=== PATIENT | male | born 1940 | race Caucasian/White ===

== ENCOUNTER 2017-10-24 19:31 | Observation (INO) | payer SELFPAY ==
--- NOTE | 2017-10-24 19:45 | EDPHY ---
H & P Stated Complaint: c/o gerd since this am, last 2 hrs bilat low chest/up abd pain , poss fever Time Seen by Provider: 10/24/17 19:44 HPI/ROS: CHIEF COMPLAINT: [ ] HISTORY OF PRESENT ILLNESS: [Need 4: Location, Duration, Severity, Quality, Context, Timing Modifying Factors, Associated S&S] REVIEW OF SYSTEMS: A comprehensive 10 point review of systems is otherwise negative aside from elements mentioned in the history of present illness. Source: Patient Exam Limitations: No limitations - Medical/Surgical History Hx Asthma: No Hx Chronic Respiratory Disease: No Hx Diabetes: No Hx Cardiac Disease: Yes Hx Renal Disease: No Hx Cirrhosis: No Hx Alcoholism: No Hx HIV/AIDS: No Hx Splenectomy or Spleen Trauma: No Other PMH: mi, cabg, hypertension, hyperlipidemia, gerd - Social History Smoking Status: Current every day smoker - Physical Exam Exam: General Appearance: [Alert, no distress] Eyes: [Pupils equal and round no pallor or injection] ENT, Mouth: [Mucous membranes moist] Respiratory: [There are no retractions, lungs are clear to auscultation] Cardiovascular: [Regular rate and rhythm] Gastrointestinal: [Abdomen is soft and nontender, no masses, bowel sounds normal] Neurological: [A&O, normal motor function, normal sensory exam, normal cranial nerves] Skin: [Warm and dry, no rashes] Musculoskeletal: [Neck is supple nontender] Extremities: [symmetrical, full range of motion] Psychiatric: [Patient is oriented X 3, there is no agitation] Constitutional: Initial Vital Signs Temperature (C) 36.3 C 10/24/17 19:35 Heart Rate 72 10/24/17 19:35 Respiratory Rate 16 10/24/17 19:35 Blood Pressure 176/83 H 10/24/17 19:35 O2 Sat (%) 95 10/24/17 19:35 O2 Delivery Mode Room Air Allergies/Adverse Reactions: No Known Allergies Allergy (Unverified 10/24/17 19:41) Home Medications: Medication Instructions Recorded NK [No Known Home Meds] 10/24/17 Departure - Departure Referrals: NONE *PRIMARY CARE P,. [Primary Care Provider] - As per Instructions
--- NOTE | 2017-10-24 19:47 | EDPHY ---
HPI/HX/ROS/PE/MDM Narrative: CHIEF COMPLAINT: Abdominal pain HISTORY OF PRESENT ILLNESS: This patient is a 77 y/o male complaining of abdominal discomfort. This morning around 5am he woke with a pressure sensation in his upper abdomen and chest. This has happened in the past and usually resolves after about 30 minutes. Today , the sensation persisted. He has been belching frequently to relieve the pressure. He was able to eat normally. He has felt febrile throughout the day as well. He went to see an urgent care around 6pm. Did EKG, recommended he present to ED for further evaluation. Denies history of reflux or gastritis. He denies swelling in his ankles. Patient has history of CABG in 2005. Prior to this, he had the sensation of an elephant sitting on his chest. He denies similar symptoms today. No chills, chest pain, shortness of breath, palpitations , vomiting, diarrhea, urinary complaints, headache, lightheadedness. REVIEW OF SYSTEMS: Aside from elements discussed in the HPI, a comprehensive 10-point review of systems was reviewed and is negative. PAST MEDICAL HISTORY: History of CABG in 2005. Hypertension. Hyperlipidemia, GERD. SOCIAL HISTORY: Family at bedside. Daily tobacco use. No alcohol use. VITAL SIGNS: Reviewed by me. Afebrile here. GENERAL: Well-developed, well-nourished, frequent belching, in no respiratory distress. HEENT: Atraumatic. Eyes: No icterus, no injection. Mouth: poor dentition. Moist mucous membranes. No erythema or lesions. Neck: supple with no adenopathy. LUNGS: Clear to auscultation bilaterally, no wheezes, rhonchi or rales. CARDIAC: Regular rate and rhythm, no rubs, murmurs or gallops. ABDOMEN: Soft, somewhat distended, very mild tenderness to deep palpation epigastric right and left upper quadrants. Normal bowel sounds. BACK: No CVA tenderness. EXTREMITIES: No trauma. No edema. Range of motion is normal throughout. NEURO: Alert and oriented, grossly nonfocal. SKIN: Warm and dry, no rash. PSYCHIATRIC: Normal mentation, no agitation. Portions of this note were transcribed by a medical records auditor. I personally performed a history, physical exam, medical decision making, and confirmed accuracy of information the transcribed note. ED Course: 77 y/o male presents with upper abdominal discomfort onset this morning. Plan for EKG, chest x-ray, labs including CBC, chemistries, liver, lipase, UA, POC troponin. Plan to administer 40mg IV Protonix, 4mg IV Zofran and 75mcg IV fentanyl for symptom relief. 12-LEAD EKG: Please see the full report in [facility]. My interpretation: Sinus rhythm, RBBB. Chest x-ray negative for acute processes. Troponin negative. Labs otherwise unremarkable. On re-examination the patient reports decrease in his epigastric discomfort. He is continuing to report bilateral thoraco- abdominal discomfort, as well as upper abdominal discomfort in a band across the upper abdomen. His belching has returned. Urinalysis: Negative. CT Scan Abdomen/ Pelvis ordered. Reported to me by Dr. Dumont as demonstrating gallstones, gallbladder wall thickening, pericholecystic fluid, consistent with cholecystitis. Patient also has an adrenal mass. Course discussed with Dr. Tenzin Hernández. We will obtain a CT scan to further evaluate the gallbladder. Plan to admit to the hospital for presumed cholecystitis as well as abdominal pain. MDM: Differential diagnosis for the patient's upper abdominal pain and belching was considered including but not limited to cholecystitis, biliary colic, gastritis , peptic ulcers disease, and pancreatitis. - Data Points Imaging Results: Imaging Impressions Chest X-Ray 10/24/17 20:02 Impression: 1. Postsurgical changes. 2. No acute pulmonary disease. Abdomen CT 10/24/17 21:51 Impression: 1. Cholelithiasis with pericholecystic fluid suggesting acute cholecystitis. Consider follow-up ultrasound gallbladder. 2. Sigmoid diverticulosis without diverticulitis or bowel obstruction. 3. Mild constipation. 4. Atherosclerotic aorta without aneurysm. 5. Left adrenal mass measuring 3.2 x 2.5 cm which may represent adrenal adenoma versus adrenal cortical cortical carcinoma, or metastasis. Recommend follow-up noncontrast CT abdomen when the patient's medical condition permits. Findings and recommendations discussed with Emergency Department physician, Georgia Malave MD at 22:23 hour, 10/24/2017. Final report concurs with initial preliminary interpretation. Imaging: I viewed and interpreted images myself Laboratory Results: Laboratory Results 10/24/17 19:52 10/24/17 19:52 10/24/17 10/24/17 10/24/17 21:29 19:58 19:52 WBC RBC Hgb Hct MCV MCH MCHC RDW Plt Count MPV Neut % (Auto) Lymph % (Auto) [place] % (Auto) Eos % (Auto) Baso % (Auto) Nucleat RBC Rel Count Absolute Neuts (auto) Absolute Lymphs (auto) Absolute Monos (auto) Absolute Eos (auto) Absolute Basos (auto) Absolute Nucleated RBC Immature Gran % Immature Gran # Sodium 136 mEq/L mEq/L (135-145) Potassium 4.2 mEq/L mEq/L (3.3-5.0) Chloride 101 mEq/L mEq/L (97-110) Carbon Dioxide 22 mEq/l mEq/l (22-31) Anion Gap 13 mEq/L mEq/L (8-16) BUN 16 mg/dL mg/dL (7-23) Creatinine 0.7 mg/dL mg/dL (0.7-1.3) Estimated GFR > 60 Glucose 102 mg/dL H mg/dL (70-100) Calcium 9.1 mg/dL mg/dL (8.5-10.4) Total Bilirubin 0.8 mg/dL mg/dL (0.1-1.4) Conjugated Bilirubin 0.5 mg/dL mg/dL (0.0-0.5) Unconjugated Bilirubin 0.3 mg/dL mg/dL (0.0-1.1) AST 26 IU/L IU/L (17-59) ALT 25 IU/L IU/L (21-72) Alkaline Phosphatase 51 IU/L IU/L (38-126) POC Troponin I 0.01 ng/mL ng/mL (0.00-0.08) Total Protein 7.5 g/dL g/dL (6.3-8.2) Albumin 4.4 g/dL g/dL (3.5-5.0) Lipase 51 IU/L IU/L (23-300) Urine Color PALE YELLOW Urine Appearance CLEAR Urine pH 5.0 (5.0-7.5) Ur Specific [place] 1.006 (1.002-1.030) Urine Protein NEGATIVE (NEGATIVE) Urine Ketones NEGATIVE (NEGATIVE) Urine Blood NEGATIVE (NEGATIVE) Urine Nitrate NEGATIVE (NEGATIVE) Urine Bilirubin NEGATIVE (NEGATIVE) Urine Urobilinogen NEGATIVE EU EU (0.2-1.0) Ur Leukocyte Esterase NEGATIVE (NEGATIVE) Urine RBC NONE SEEN /hpf /hpf (0-3) Urine WBC 1-3 /hpf /hpf (0-3) Ur Epithelial Cells NONE SEEN /lpf /lpf (NONE-1+) Urine Mucus TRACE /lpf /lpf (NONE-1+) Urine Glucose NEGATIVE (NEGATIVE) 10/24/17 19:52 WBC 12.79 10^3/uL H 10^3/uL (3.80-9.50) RBC 5.05 10^6/uL 10^6/uL (4.40-6.38) Hgb 16.7 g/dL g/dL (13.7-17.5) Hct 46.5 % % (40.0-51.0) MCV 92.1 fL fL (81.5-99.8) MCH 33.1 pg pg (27.9-34.1) MCHC 35.9 g/dL g/dL (32.4-36.7) RDW 12.6 % % (11.5-15.2) Plt Count 192 10^3/uL 10^3/uL (150-400) MPV 10.2 fL fL (8.7-11.7) Neut % (Auto) 73.7 % % (39.3-74.2) Lymph % (Auto) 16.0 % % (15.0-45.0) [place] % (Auto) 9.1 % % (4.5-13.0) Eos % (Auto) 0.3 % L % (0.6-7.6) Baso % (Auto) 0.5 % % (0.3-1.7) Nucleat RBC Rel Count 0.0 % % (0.0-0.2) Absolute Neuts (auto) 9.43 10^3/uL H 10^3/uL (1.70-6.50) Absolute Lymphs (auto) 2.05 10^3/uL 10^3/uL (1.00-3.00) Absolute Monos (auto) 1.16 10^3/uL H 10^3/uL (0.30-0.80) Absolute Eos (auto) 0.04 10^3/uL 10^3/uL (0.03-0.40) Absolute Basos (auto) 0.06 10^3/uL 10^3/uL (0.02-0.10) Absolute Nucleated RBC 0.00 10^3/uL 10^3/uL (0-0.01) Immature Gran % 0.4 % % (0.0-1.1) Immature Gran # 0.05 10^3/uL 10^3/uL (0.00-0.10) Sodium Potassium Chloride Carbon Dioxide Anion Gap BUN Creatinine Estimated GFR Glucose Calcium Total Bilirubin Conjugated Bilirubin Unconjugated Bilirubin AST ALT Alkaline Phosphatase POC Troponin I Total Protein Albumin Lipase Urine Color Urine Appearance Urine pH Ur Specific [place] Urine Protein Urine Ketones Urine Blood Urine Nitrate Urine Bilirubin Urine Urobilinogen Ur Leukocyte Esterase Urine RBC Urine WBC Ur Epithelial Cells Urine Mucus Urine Glucose Medications Given: Discontinued Medications Dicyclomine HCl (Bentyl) 20 mg PO EDNOW ONE Stop: 10/24/17 21:52 Last Admin: 10/24/17 21:54 Dose: 20 mg Fentanyl (Sublimaze) 75 mcg IVP EDNOW ONE Stop: 10/24/17 20:02 Last Admin: 10/24/17 20:17 Dose: 75 mcg Ondansetron HCl (Zofran) 4 mg IVP EDNOW ONE Stop: 10/24/17 20:02 Last Admin: 10/24/17 20:17 Dose: 4 mg Pantoprazole Sodium (Protonix) 40 mg IVP EDNOW ONE Stop: 10/24/17 20:30 Last Admin: 10/24/17 20:35 Dose: 40 mg Promethazine HCl (Phenergan) 12.5 mg IVP EDNOW ONE Stop: 10/24/17 21:56 Last Admin: 10/24/17 21:58 Dose: 12.5 mg Point of Care Test Results: Chemistry 10/24/17 19:58 POC Troponin I 0.01 ng/mL ng/mL (0.00-0.08) General Time Seen by Provider: 10/24/17 19:44 Initial Vital Signs: Initial Vital Signs Temperature (C) 36.3 C 10/24/17 19:35 Heart Rate 72 10/24/17 19:35 Respiratory Rate 16 10/24/17 19:35 Blood Pressure 176/83 H 10/24/17 19:35 O2 Sat (%) 95 10/24/17 19:35 O2 Delivery Mode Room Air Allergies/Adverse Reactions: No Known Allergies Allergy (Unverified 10/24/17 19:41) Home Medications: Medication Instructions Recorded NK [No Known Home Meds] 10/24/17 Departure - Departure Disposition: [facility] Inpatient Acute Clinical Impression: Cholecystitis Abdominal pain Qualifiers: Abdominal location: epigastric Qualified Code(s): R10.13 - Epigastric pain Condition: Fair Referrals: Surendra Grossman MD [Medical Doctor] - As per Instructions (Follow up with Dr. Grossman or 1 of his partners as soon as possible) Report Scribed for: Georgia Malave Report Scribed by: Isabel Brice Date of Report: 10/24/17 Time of Report: 19:47
--- NOTE | 2017-10-24 19:49 | CPEKG ---
Heart Rate: 76 RR Interval: 789 P-R Interval: 184 QRSD Interval: 146 QT Interval: 444 QTC Interval: 500 P Hankins: -26 QRS Hankins: 70 T Wave Hankins: 12 EKG Severity - ABNORMAL ECG - EKG Impression: SINUS RHYTHM EKG Impression: RIGHT BUNDLE BRANCH BLOCK EKG Impression: INFERIOR INFARCT, AGE INDETERMINATE Electronically Signed By: Georgia Malave 24-Oct-2017 21:38:07
[2017-10-24] MEDS ORDERED: fentaNYL 100 MCG/2 ML INJ IVP ONE (20:01)
[2017-10-24] MEDS ORDERED: ONDANSETRON 4 MG/2 ML VIAL IVP ONE (20:01)
[2017-10-24 20:12] LABS: PLATELET COUNT 192 10^3/uL (150-400)
[2017-10-24] MEDS ORDERED: PANTOPRAZOLE SODIUM 40 MG VIAL IVP ONE (20:29)
[2017-10-24] MEDS ORDERED: DICYCLOMINE 10 MG CAP PO ONE (21:51)
[2017-10-24] MEDS ORDERED: IOPAMIDOL (ISOVUE-300) 100 ML BTL ONE (21:53)
[2017-10-24] MEDS ORDERED: PROMETHAZINE HCL 25 MG/ML INJ IVP ONE (21:55)
--- NOTE | 2017-10-25 00:13 | SOAPPROG ---
FROY Progress Note Assessment/Plan: Assessment: 77-YEAR-OLD MALE WITH ACUTE CHOLECYSTITIS WITH A SINGLE EPISODE OF ABDOMINAL PAIN STARTING AT 2:30 A.M. TODAY AND PERSISTING. HE HAS HAD NO OTHER EPISODES BEFORE. ULTRASOUND CT SCAN REVEAL REVEAL MULTIPLE STONES. HIS LFTS ARE NORMAL. DUCTS ARE NOT DILATED AND HE HAS NO SIGNS OF JAUNDICE PAST HISTORY INCLUDES CORONARY ARTERY BYPASS AND SOME CORONARY STENTS REVIEW OF SYSTEMS IS NONCONTRIBUTORY ON A FULL 10 POINT REVIEW EXCEPT RELATED TO THE HPI ALLERGIES NONE MEDS NONE FAMILY HISTORY NONCONTRIBUTORY HEENT NONICTERIC WITHOUT ADENOPATHY CHEST CLEAR COR REGULAR RHYTHM ABDOMEN SOFT NONTENDER WITHOUT ORGANOMEGALY EXTREMITIES FULL RANGE OF MOTION FULL PULSES NEUROLOGIC SYMMETRIC AND PHYSIOLOGIC IMPRESSION SYMPTOMATIC CHOLELITHIASIS AND CHOLECYSTITIS Plan: LAP CHOLY IN THE A.M./RISKS AND OPTIONS FULLY DISCUSSED AND HE WISHES TO PROCEED 10/25/17 00:10 Objective: Vital Signs Temp Pulse Resp BP Pulse Ox 36.3 C 86 16 132/77 H 92 10/24/17 19:35 10/24/17 23:05 10/24/17 23:05 10/24/17 23:05 10/24/17 23:05 ICD10 Worksheet Patient Problems: Problems Problem Status Onset Abdominal pain Acute Cholecystitis Acute
[2017-10-25] MEDS ORDERED: HYDROmorphone HCL/NS 0.5 MG/ML SYR IVP PRN ×2 (00:20→11:00)
[2017-10-25] MEDS ORDERED: ONDANSETRON 4 MG/2 ML VIAL IVP PRN (00:20)
[2017-10-25] MEDS ORDERED: D5W 1/2 NS W/ 20 KCl/L 1,000 ML IV SCH (00:30)
[2017-10-25] MEDS ORDERED: PANTOPRAZOLE SODIUM 40 MG VIAL IVP SCH (02:02)
[2017-10-25] MEDS ORDERED: cefOXitin SODIUM 2 GM in NS 100 ML IV ONE (06:00)
[2017-10-25] MEDS ORDERED: LR 1,000 ML IV ONE (09:00)
--- NOTE | 2017-10-25 09:14 | PDANEPAE ---
ANE History of Present Illness laparoscopic cholecystectomy ' ANE Past Medical History - Cardiovascular History Hx Arrhythmias: No Cardiovascular History Comment: s/p [place] and CABG in , hx of HPL, RBBB and old [place] on EKG. 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 RA O2 saturation in preop: 87 - Endocrine History Hx Diabetes: No Hypothyroid: No Hyperthyroid: No Obesity: mild - Renal History Hx Renal Disorders: No - Liver History Hx Hepatic Disorders: No - Neurological & Psychiatric Hx Hx Neurological and Psychiatric Disorders: No - Cancer History Hx Cancer: No - Congenital Disorder History Hx Congenital Disorders: No - GI History GERD: no Hx Gastrointestinal Disorders: No - Chronic Pain History Chronic Pain: No - Surgical History Prior Surgeries: CABG in ANE Review of Systems Review of Systems: - Exercise capacity METS (RN): 4 METS ANE Patient History - Allergies Allergies/Adverse Reactions: No Known Allergies Allergy (Unverified 10/24/17 19:41) - Home Medications Home Medications: Aspirin [Aspirin 81mg (*)] 81 mg PO HS 10/25/17 [Last Taken 10/24/17] - NPO status NPO Since - Liquids (Date): 10/25/17 NPO Since - Liquids (Time): 00:00 NPO Since - Solids (Date): 10/25/17 NPO Since - Solids (Time): 00:00 - Anes Hx Anes Hx: no prior problems - Smoking Hx Smoking Status: Current every day smoker Marijuana use: No - Alcohol Use Alcohol Use: None - Family Anes Hx Family Hx Anesthesia Complications: unknown ANE Labs/Vital Signs - Labs Result Diagrams: 10/24/17 19:52 10/24/17 19:52 - Vital Signs Blood Pressure: 117/54 Heart Rate: 90 Respiratory Rate: 16 O2 Sat (%): 90 Height: 172.72 cm Weight: 78.471 kg ANE Physical Exam - Airway Neck exam: decreased ROM Mallampati Score: Class 3 Mouth exam: poor dentition - Pulmonary Pulmonary: clear to auscultation - Cardiovascular Cardiovascular: regular rate and rhythym (distant sounds) ANE Anesthesia Plan Anesthesia Plan: general endotracheal anesthesia
[2017-10-25] MEDS ORDERED: BUPIVACAINE 0.5% 30 ML SDV ONE (09:23)
[2017-10-25] MEDS ORDERED: fentaNYL 100 MCG/2 ML INJ ONE ×2 (09:32→10:23)
[2017-10-25] MEDS ORDERED: ROCURONIUM 50 MG/5 ML VIAL ONE (09:33)
[2017-10-25] MEDS ORDERED: PROPOFOL 200 MG/20 ML VIAL ONE (09:33)
[2017-10-25] MEDS ORDERED: DEXAMETHASONE 4 MG/ML VIAL ONE (09:33)
[2017-10-25] MEDS ORDERED: PHENYLEPHRINE HCL 100 MCG/ML SYR ONE (10:00)
[2017-10-25] MEDS ORDERED: ONDANSETRON 4 MG/2 ML VIAL ONE (10:12)
[2017-10-25] MEDS ORDERED: HYDROmorphONE/DILAUDID 2 MG/ML INJ IVP PRN (10:20)
[2017-10-25] MEDS ORDERED: DEXAMETHASONE 4 MG/ML VIAL IVP PRN (10:20)
[2017-10-25] MEDS ORDERED: fentaNYL 100 MCG/2 ML INJ IVP PRN (10:20)
[2017-10-25] MEDS ORDERED: NALOXONE HCL 0.4 MG/ML INJ IVP PRN (10:20)
[2017-10-25] MEDS ORDERED: SUGAMMADEX SODIUM 200 MG/2 ML VIAL IVP ONE (10:49)
--- NOTE | 2017-10-25 11:02 | POSTOPPROG ---
Post Op Note Date of Operation: 10/25/17 Surgeon: Romeo Hernández Graphic Art Sales Representative: Tonia Fermin Anesthesiologist: Kwesi Rowland Anesthesia: GET(General Endotracheal) Pre-op Diagnosis: cholelithiasis, acute cholecystitis Post-op Diagnosis: same Procedure: lap patrizia Findings: many stones, much edema, large cystic duct, stone in duct milked out Inf/Abcess present in the surg proc area at time of surgery?: Yes Depth: Organ Space EBL: 200cc Complications: none Specimen(s): gallbladder to pathology
[2017-10-25] MEDS ORDERED: HYDROmorphONE/DILAUDID 1 MG/ML INJ IVP PRN (11:05)
[2017-10-25] MEDS ORDERED: D5W 1/2 NS 1,000 ML IV SCH (11:30)
--- NOTE | 2017-10-25 11:49 | ASMTCASEMG ---
Living Arrangements What is your living Answers: With Child(teddy) arrangement? Who do you live with? Type Of Residence What kind of residence do Answers: House you live in? Discharge Plan Comments Coordination Status Comments Notes: Patient is a 77yo male who comes to [facility] with acute cholecystitis, CT scan revealing multiple stones. Patient was admitted for urgent laparoscopy with Dr. Hernández. No therapies ordered at this time. D/C plan TBD. CM will follow. Date Signed: 10/25/2017 11:49 AM Electronically Signed By:Janel Leblanc LCSW
[2017-10-25] MEDS: HYDROCODONE/APAP 5/325 TAB PO PRN (13:03)
--- NOTE | 2017-10-25 13:39 | POSTANESTH ---
Post Anesthetic Evaluation Cardiovascular Status: Similar to Pre-Op Cond Respiratory Status: Similar to Pre-op Cond. Level of Consciousness/Mental Status: Can Participate in Eval Pain Control: Adequate, Prn Tx Ordered Nausea/Vomiting Control: Adequate, Prn Tx Ordered Complications Possibly Related to Anesthesia: None Noted
[2017-10-25] MEDS ORDERED: ASPIRIN 81 MG CHEWABLE TAB PO SCH (21:00)
[2017-10-25] MEDS ORDERED: MELATONIN 3 MG TAB PO SCH (21:00)
[2017-10-26] MEDS: HYDROCODONE/APAP 5/325 TAB PO PRN ×2 (00:25→07:43)
[2017-10-26 07:21] VITALS: BP 120/57
--- NOTE | 2017-10-26 08:51 | SOAPPROG ---
SOAP Progress Note Assessment/Plan: Assessment: 77 y/o M s/p lap patrizia POD#1 S: Feeling much better. Tolerating clears. Passing flatus, but no BM yet. Pain well controlled on Minerva. Eager to be discharged O: Alert Afebrile VSS No increased WOB Abdomen: soft, mildly tender to palpation, incision sites cdi, +BS Plan: Dispo home today after he eats a solid breakfast. Advised to stick to a low fat diet for first week. Follow up in Hernández' office in 2 weeks. 10/26/17 08:49 Objective: Vital Signs Temp Pulse Resp BP Pulse Ox 36.7 C 65 14 120/57 L 94 10/26/17 07:20 10/26/17 07:20 10/26/17 07:20 10/26/17 07:20 10/26/17 07:20 Laboratory Results 10/26/17 05:20 10/26/17 05:20 10/25/17 10/26/17 10/27/17 05:59 05:59 05:59 Intake Total 0 1150 Output Total 25 Balance 0 1125 ICD10 Worksheet Patient Problems: Problems Problem Status Onset Abdominal pain Acute Cholecystitis Acute
--- NOTE | 2017-10-26 09:04 | ASMTLACE ---
LACE Length of stay for Answers: 2 days current admission Acuity / Level of Answers: Yes Care: Did the patient have an inpatient admission? Comorbidities - select Answers: Other Notes: acute cholecystitis all that apply # of Emergency department Answers: 1-2 visits in the last 6 months Score: 7 Date Signed: 10/26/2017 09:03 AM Electronically Signed By:KALEE Capellan
--- NOTE | 2017-10-30 00:24 | GOP ---
[f rep st] OPERATIVE REPORT DATE OF OPERATION: 10/25/2017 SURGEON: Romeo Hernández MD INDUSTRIAL DESIGN ENGINEER: Tonia Fermin, HUEY ANESTHESIA: General endotracheal anesthesia. ANESTHESIOLOGIST: Kwesi Rowland MD PREOPERATIVE DIAGNOSIS: Acute cholecystitis and cholelithiasis. POSTOPERATIVE DIAGNOSIS: Acute cholecystitis and cholelithiasis. PROCEDURE PERFORMED: Laparoscopic cholecystectomy. FINDINGS: Patient was found to have multiple stones with marked edema of the gallbladder. Large cys tic duct with a stone impacted in the cystic duct. The common duct was not enlarged. DESCRIPTION OF PROCEDURE: The patient was taken to the operating room where he received satisfactory general endotracheal anesthesia by Dr. Rowland. Placed in the supine position, prepped and draped in the usual sterile fashion. An infraumbilical incision was made. A Veress needle was inserted. Pneu moperitoneum was established. Trocar was introduced. Laparoscope introduced. Good visualization wa s obtained. Three other trocars were placed in the upper abdomen under direct vision. The gallbladd er was elevated up. It was markedly edematous and difficult to hold up. Adhesions were taken down. The cystic triangle was carefully dissected free. The cystic duct was somewhat enlarged, and we dis sected back to the junction with the common bile duct. The cystic artery was also dissected free. A good clear view was demonstrated. The cystic artery was multiply hemoclipped and divided. The florecita toneum around the gallbladder was incised, and the gallbladder was dissected free from the bed and he patic fossa. The cystic duct was then closed by placing 2-0 PDS Endoloops distal to the stone seen i n the common duct. Once the duct was divided, the gallbladder was free, and it was placed in a speci men bag and extracted up through the upper midline port site. Wound was copiously irrigated. Hemost asis was assured. There were no complications. /[id number]/MODL
== END 2017-10-26 10:35 | disposition home or self-care (01) ==
LOC: F3E 23:33
PROVIDERS: ADMIT Surgery; ATTEND Surgery
PROC: 0FT44ZZ Resection of Gallbladder, Percutaneous Endoscopic Approach (ICD-10-PCS; principal; 2017-10-24)
DX: K80.00 Calculus of gallbladder with acute cholecystitis without obstruction (principal); I10 Essential (primary) hypertension; E78.5 Hyperlipidemia, unspecified; I45.10 Unspecified right bundle-branch block; K21.9 Gastro-esophageal reflux disease without esophagitis; E27.9 Disorder of adrenal gland, unspecified; I25.2 Old myocardial infarction; Z95.1 Presence of aortocoronary bypass graft; Z95.5 Presence of coronary angioplasty implant and graft
CPT/HCPCS: 84484-PO; 96374; G0378; J0694; J1100; J2370; J2405; J2550; J2704; J3010; Q9967